=== PATIENT | female | born 1970 ===

== ENCOUNTER 2023-01-08 14:22 | Inpatient (IN) ==
[2023-01-08] MEDS ORDERED: Droperidol 5 MG/2 ML 2 ML VIAL IM ONE (14:38)
[2023-01-08] MEDS ORDERED: Lactated Ringers 1000 ml BAG 1,000 ML IV ONE (14:38)
[2023-01-08 16:32] LABS: ABS Monocytes 0.5 10^3/uL (0.0-0.9); ABS Neutrophils 10.2 10^3/uL (1.5-7.6); ABS Nucleated RBC 0.01 10^3/ul; Hematocrit 37.9 % (35-45); Lymphocyte % 8.9 %; Mean Corpuscular Hemoglobin 29.1 pg (27-33); Mean Corpuscular Hgb Conc 34.3 g/dL (31-36); Mean Platelet Volume 7.7 fL (7.5-11.2); Platelet Count 282 10^3/uL (150-450); Red Blood Count 4.46 10^6/uL (3.63-4.92); Red Cell Distribution Width 13.2 % (12-17); White Blood Count 11.7 10^3/uL (3.8-11.8)
[2023-01-08 16:56] LABS: ALT 10 U/L (7-52); AST 18 U/L (13-39); Acetaminophen < 15 mcg/mL; Albumin 4.3 g/dL (3.2-5.2); Albumin/Globulin Ratio 1.4 (1-3); Alcohol, S < 13 mg/dL (<13); Alkaline Phosphatase 60 U/L (35-149); Anion Gap 11 mmol/L (2-16); Blood Urea Nitrogen 28 mg/dL (6-24); CO2 Carbon Dioxide 23 mmol/L (22-32); Calcium 9.9 mg/dL (8.6-10.3); Chloride 105 mmol/L (101-111); Creatinine, Serum 1.24 mg/dL (0.51-0.95); Globulin 3.1 g/dL (2-4); Glucose 138 mg/dL (70-100); Magnesium 2.2 mg/dL (1.9-2.7); Potassium 3.3 mmol/L (3.5-5.0); Salicylate < 2.50 mg/dL (<30); Sodium 139 mmol/L (135-145); Total Protein 7.4 g/dL (6.4-8.9); eGFR CKD-EPI 52.7 (>60)
[2023-01-08 17:08] LABS: TSH Ultra Thyroid Stim Horm 1.45 mcIU/mL (0.34-5.60)
[2023-01-08] MEDS ORDERED: Potassium Chlor 20 meq TAB.ER PO ONE (20:00)
[2023-01-08 21:06] LABS: Urine Appearance Cloudy; Urine Bilirubin Negative (Negative); Urine Blood Negative (Negative); Urine Color Yellow; Urine Glucose 2+(150 mg/dL) (Negative); Urine Ketones 1+ (Negative); Urine Nitrite Negative (Negative); Urine Protein 2+(100 mg/dL) (Negative); Urine Specific Gravity 1.027 (1.002-1.030); Urine Urobilinogen Negative (Negative)
[2023-01-08 21:10] LABS: Urine Benzodiazepine Screen None Detected (None Detect); Urine Cannabinoids Screen None Detected (None Detect); Urine Opiates Screen None Detected (None Detect)
[2023-01-08 21:12] LABS: Urine Bacteria Absent (Absent); Urine Red Blood Cell Trace(0-2/hpf) (Absent); Urine Squamous Epithelial Cell Present (Absent); Urine White Blood Cell 1+(6-10/hpf) (Absent)
[2023-01-08] MEDS ORDERED: Al Hydrox/Mg Hydrox/Simet LIQ 30 ML UDC PO PRN (22:35)
[2023-01-09] MEDS: Vitamin THERAPEUTIC TAB PO SCH (14:49)
[2023-01-10] MEDS: Vitamin THERAPEUTIC TAB PO SCH (08:14)
[2023-01-11] MEDS: Vitamin THERAPEUTIC TAB PO SCH (09:48)
[2023-01-12] MEDS: Vitamin THERAPEUTIC TAB PO SCH (13:45)
[2023-01-13] MEDS: Vitamin THERAPEUTIC TAB PO SCH (08:58)
[2023-01-14] MEDS: Vitamin THERAPEUTIC TAB PO SCH (08:03)
[2023-01-15] MEDS: Vitamin THERAPEUTIC TAB PO SCH (07:06)
[2023-01-16] MEDS: Vitamin THERAPEUTIC TAB PO SCH (09:55)
[2023-01-17] MEDS: Vitamin THERAPEUTIC TAB PO SCH (09:16)
[2023-01-18] MEDS: Vitamin THERAPEUTIC TAB PO SCH (09:37)
[2023-01-19] MEDS: Vitamin THERAPEUTIC TAB PO SCH (10:15)
[2023-01-20] MEDS: Vitamin THERAPEUTIC TAB PO SCH (08:52)
[2023-01-21] MEDS: Vitamin THERAPEUTIC TAB PO SCH (09:51)
[2023-01-22] MEDS: Vitamin THERAPEUTIC TAB PO SCH (09:21)
[2023-01-23] MEDS: Vitamin THERAPEUTIC TAB PO SCH (08:36)
[2023-01-24] MEDS: Vitamin THERAPEUTIC TAB PO SCH (09:56)
[2023-01-25] MEDS: Vitamin THERAPEUTIC TAB PO SCH (09:49)
[2023-01-25] MEDS ORDERED: chlorproMAZINE 25 MG/ML 2 ML (50 MG) ONE (15:26)
[2023-01-25] MEDS ORDERED: chlorproMAZINE 25 MG/ML 2 ML (50 MG) IM ONE (15:28)
[2023-01-26] MEDS: Vitamin THERAPEUTIC TAB PO SCH (09:16)
[2023-01-26] MEDS ORDERED: Haloperidol 5 mg/ml SDV IV/IM 5 MG/ML AMP ONE (09:51)
[2023-01-26] MEDS ORDERED: LORazepam 2 mg VIAL 1 ml ONE (09:52)
[2023-01-26] MEDS ORDERED: chlorproMAZINE 25 MG/ML 2 ML (50 MG) ONE (09:56)
[2023-01-26] MEDS ORDERED: chlorproMAZINE 25 MG/ML 2 ML (50 MG) IM ONE ×2 (10:28)
[2023-01-26] MEDS ORDERED: OLANZapine IM (NF) 10 MG VIAL IM PRN (18:19)
[2023-01-27] MEDS: Vitamin THERAPEUTIC TAB PO SCH (07:11)
[2023-01-27] MEDS ORDERED: chlorproMAZINE 25 MG/ML 2 ML (50 MG) ONE (10:01)
[2023-01-27] MEDS ORDERED: Lorazepam PYXIS KEY PRN (10:01)
[2023-01-27] MEDS ORDERED: LORazepam 2 mg VIAL 1 ml IM STA (10:01)
[2023-01-27] MEDS ORDERED: chlorproMAZINE 25 MG/ML 2 ML (50 MG) IM STA (10:01)
[2023-01-27 10:39] LABS: ABS Lymphocytes 3.1 10^3/uL (1.0-4.8); ABS Monocytes 0.5 10^3/uL (0.0-0.9); ABS Neutrophils 6.8 10^3/uL (1.5-7.6); ABS Nucleated RBC 0.02 10^3/ul; Eosinophil % 0.4 %; Hematocrit 42.5 % (35-45); Hemoglobin 14.2 g/dL (11.5-14.3); Lymphocyte % 29.5 %; Mean Corpuscular Hemoglobin 29.3 pg (27-33); Mean Corpuscular Hgb Conc 33.4 g/dL (31-36); Mean Corpuscular Volume 87.5 fL (80-97); Mean Platelet Volume 7.6 fL (7.5-11.2); Nucleated Red Blood Cells % 0.2 /100 WBC (0.0-0.4); Platelet Count 322 10^3/uL (150-450); Red Blood Count 4.85 10^6/uL (3.63-4.92); Red Cell Distribution Width 13.6 % (12-17); White Blood Count 10.6 10^3/uL (3.8-11.8)
[2023-01-27 11:44] LABS: Albumin 4.3 g/dL (3.2-5.2); Calcium 10.1 mg/dL (8.6-10.3); Potassium 4.8 mmol/L (3.5-5.0); Total Bilirubin 0.4 mg/dL (0.2-1.0)
[2023-01-27 11:50] LABS: Albumin/Globulin Ratio 1.3 (1-3); Creatinine, Serum 0.91 mg/dL (0.51-0.95); Globulin 3.2 g/dL (2-4); Total Protein 7.5 g/dL (6.4-8.9); eGFR CKD-EPI 76.4 (>60)
[2023-01-28] MEDS: Lithium Carbonate ER 450mg TAB PO SCH ×2 (09:10→14:28)
[2023-01-29] MEDS: Lithium Carbonate ER 450mg TAB PO SCH (10:38)
[2023-01-30] MEDS ORDERED: Lithium Carbonate ER 450mg TAB ONE (07:37)
[2023-01-30] MEDS: Lithium Carbonate ER 450mg TAB PO SCH (07:39)
[2023-01-31] MEDS: Lithium Carbonate ER 450mg TAB PO SCH (10:59)
[2023-02-01] MEDS: Lithium Carbonate ER 450mg TAB PO SCH ×2 (10:52→14:20)
[2023-02-02 13:59] LABS: ABS Lymphocytes 2.6 10^3/uL (1.0-4.8); ABS Monocytes 0.5 10^3/uL (0.0-0.9); ABS Neutrophils 5.9 10^3/uL (1.5-7.6); ABS Nucleated RBC 0.01 10^3/ul; Eosinophil % 0.5 %; Hematocrit 39.3 % (35-45); Hemoglobin 13.3 g/dL (11.5-14.3); Mean Corpuscular Hgb Conc 33.8 g/dL (31-36); Mean Corpuscular Volume 85.7 fL (80-97); Mean Platelet Volume 7.3 fL (7.5-11.2); Nucleated Red Blood Cells % 0.1 /100 WBC (0.0-0.4); Platelet Count 356 10^3/uL (150-450); Red Blood Count 4.59 10^6/uL (3.63-4.92); Red Cell Distribution Width 13.4 % (12-17)
[2023-02-02] MEDS: Lithium Carbonate ER 450mg TAB PO SCH (14:25)
[2023-02-02] MEDS ORDERED: chlorproMAZINE 25 MG/ML 2 ML (50 MG) ONE ×2 (14:35→14:38)
[2023-02-02] MEDS ORDERED: LORazepam 2 mg VIAL 1 ml IM ONE (14:36)
[2023-02-02] MEDS ORDERED: Lorazepam PYXIS KEY PRN (14:36)
[2023-02-02] MEDS ORDERED: LORazepam 2 mg VIAL 1 ml ONE (14:38)
[2023-02-02] MEDS ORDERED: chlorproMAZINE 25 MG/ML 2 ML (50 MG) IM ONE (15:02)
[2023-02-03] MEDS: risperiDONE-M 1 mg Oradis TAB PO SCH (11:03)
[2023-02-04] MEDS: risperiDONE-M 1 mg Oradis TAB PO SCH (08:27)
[2023-02-05] MEDS: risperiDONE-M 1 mg Oradis TAB PO SCH (09:07)
[2023-02-06] MEDS: risperiDONE-M 1 mg Oradis TAB PO SCH (08:31)
[2023-02-06] MEDS ORDERED: Paliperidone SUSTENNA 234 MG/1.5 ML IM ONE (10:30)
[2023-02-07] MEDS: risperiDONE-M 1 mg Oradis TAB PO SCH (08:55)
[2023-02-08] MEDS: risperiDONE-M 1 mg Oradis TAB PO SCH (09:08)
[2023-02-09] MEDS: risperiDONE-M 1 mg Oradis TAB PO SCH (08:06)
[2023-02-09] MEDS ORDERED: Paliperidone SUSTENNA 156 MG/1 ML IM ONE (09:50)
[2023-03-02] MEDS ORDERED: PALIPERIDONE 234 MG/1.5 ML IM SCH (09:00)
[2023-03-02 10:07] VITALS: BP 111/68
== END 2023-03-02 19:00 | DRG 750 ==
LOC: ED 14:22 → EDHOLD 23:01 → BSU 23:07
PROVIDERS: ADMIT Psychiatry & Neurology Psychiatry; ATTEND Psychiatry & Neurology Psychiatry